=== PATIENT | male | born 1950 | race Hispanic/Latino ===

== ENCOUNTER → 2021-05-28 | Day surgery (SDC) | payer MEDICARE ==
[2021-05-25 13:51] LABS: BASOPHILS # (AUTO) 0.1 (0.0-0.1); BASOPHILS % 1.3 % (0.0-1.0); EOSINOPHILS # (AUTO) 0.3 (0.0-0.4); EOSINOPHILS % 4.3 % (0.0-6.0); HEMATOCRIT 43.1 % (38.2-49.6); HEMOGLOBIN 13.6 g/dL (14.0-18.0); LYMPHOCYTES # (AUTO) 1.4 (1.0-3.2); LYMPHOCYTES % 19.1 % (18.0-39.1); MEAN CORPUSCULAR HGB CONC 31.6 g/dL (31-35); MEAN CORPUSCULAR VOLUME 95.1 fL (81-99); MONOCYTES # (AUTO) 0.6 (0.2-0.8); MONOCYTES % 7.9 % (4.4-11.3); NEUTROPHILS # (AUTO) 4.7 (2.1-6.9); PLATELET COUNT 257 x10e3/uL (140-360); RED BLOOD COUNT 4.53 x10e6/uL (4.3-5.7); RED CELL DISTRIBUTION WIDTH 12.7 % (11.7-14.4)
[2021-05-25 14:07] LABS: ANION GAP 11.7 mmol/L (8-16); CREATININE, SERUM 0.94 mg/dL (0.72-1.25); POTASSIUM 4.7 mmol/L (3.5-5.1)
[~2021-05-28] MED LIST: ATORVASTATIN CA10 MG PO; BELLADONNA/OPIUM 30 MG SUPP RC ONE; CEFTRIAXONE 1 GM VIAL ONE; DEXAMETHASONE SOD PHOS INJ 4 MG/ML SDV ONE; DOXAZOSIN MESYLA2 MG PO; FENTANYL CITRATE/PF 100MCG/2 ML INJ ONE; FINASTERIDE5 MG PO; FLOMAX0.4 MG PO; GENTAMICIN 80MG/NS 100 ML 200 ML IV ONE; HYDROCODONE/APAP 5MG-325MG TAB ONE; IOPAMIDOL 300MG/ML 50ML INFUS..BTL IV ONE; LIDOCAINE HCL 2% LOCAL INJ 5 ML SDV VIAL INJ ONE; LISINOPRIL10 MG PO; ONDANSETRON HCL INJ 2MG/ML 2ML 2 MG/ML VIAL ONE; POVIDONE IODINE 0.05% 0.05 % ML PO ONE; PROPOFOL IV EMULSION 10 MG/ML 20 ML VIAL ONE
[2021-05-28 14:45] VITALS: BP 135/85
== END | disposition home or self-care (01) ==
LOC: OR 09:12
PROVIDERS: ATTEND Urology
DX: N40.1 Benign prostatic hyperplasia with lower urinary tract symptoms (principal); R39.14 Feeling of incomplete bladder emptying; R39.12 Poor urinary stream; R35.1 Nocturia; N32.3 Diverticulum of bladder; N32.89 Other specified disorders of bladder; N32.81 Overactive bladder; E66.9 Obesity, unspecified; I10 Essential (primary) hypertension; E78.00 Pure hypercholesterolemia, unspecified; H91.90 Unspecified hearing loss, unspecified ear; Z01.810 Encounter for preprocedural cardiovascular examination; Z01.812 Encounter for preprocedural laboratory examination; Z20.822 Contact with and (suspected) exposure to COVID-19; Z79.899 Other long term (current) drug therapy; Z68.32 Body mass index [BMI] 32.0-32.9, adult; Z87.891 Personal history of nicotine dependence
CPT/HCPCS: 52005; C9740; 36415; 71046; 74420; 80048; 85025; 93005; C1758; J0696; J1100; J1580; J2001; J2405; J3010; L8699; U0002

== ENCOUNTER 2024-11-27 06:44 | Inpatient (IN) | payer MEDICARE ==
[2024-11-25 12:58] LABS: BASOPHILS % 1.0 % (0.0-1.0); EOSINOPHILS % 2.7 % (0.0-6.0); LYMPHOCYTES % 25.1 % (18.0-39.1); MONOCYTES % 7.1 % (4.4-11.3); NEUTROPHILS % 63.7 % (38.7-80.0); RED CELL DISTRIBUTION WIDTH 12.9 % (11.7-14.4)
[2024-11-25 13:27] LABS: EST GLOMERULAR FILTRATION RATE 83.0 ML/MIN (>=60)
[2024-11-27] VITALS (8 sets, daily range): BP systolic 152–187; BP diastolic 88–95; PULSE 56–75; RESP 16–20; TEMP 97.2–97.6; O2SAT 94–98
[~2024-11-27] VITALS: Ht 172.7 cm; Wt 96.6 kg
[~2024-11-27 06:44] MED LIST changes: +ATORVASTATIN CA40 MG PO; -BELLADONNA/OPIUM 30 MG SUPP RC ONE; -CEFTRIAXONE 1 GM VIAL ONE; -DEXAMETHASONE SOD PHOS INJ 4 MG/ML SDV ONE; -FENTANYL CITRATE/PF 100MCG/2 ML INJ ONE; -GENTAMICIN 80MG/NS 100 ML 200 ML IV ONE; -HYDROCODONE/APAP 5MG-325MG TAB ONE; -IOPAMIDOL 300MG/ML 50ML INFUS..BTL IV ONE; -LIDOCAINE HCL 2% LOCAL INJ 5 ML SDV VIAL INJ ONE; +METOPROLOL TART25 MG PO; -ONDANSETRON HCL INJ 2MG/ML 2ML 2 MG/ML VIAL ONE; -POVIDONE IODINE 0.05% 0.05 % ML PO ONE; -PROPOFOL IV EMULSION 10 MG/ML 20 ML VIAL ONE
[2024-11-27] MEDS: CEFTRIAXONE 1 GM VIAL ONE (08:11)
[2024-11-27] MEDS: SODIUM CHLORIDE 0.9% 1000ML 1,000 ML ONE ×2 (08:11→13:14)
[2024-11-27] MEDS: GENTAMICIN 80MG/NS 100 ML 200 ML IV ONE (08:12)
[2024-11-27] MEDS ORDERED: LIDOCAINE HCL 2% LOCAL INJ 5 ML SDV VIAL INJ ONE (09:27)
[2024-11-27] MEDS ORDERED: PROPOFOL IV EMULSION 10 MG/ML 20 ML VIAL ONE ×2 (09:27→10:01)
[2024-11-27] MEDS ORDERED: FENTANYL CITRATE/PF 100MCG/2 ML INJ ONE ×2 (10:00→10:35)
[2024-11-27] MEDS ORDERED: ONDANSETRON HCL INJ 2MG/ML 2ML 2 MG/ML VIAL ONE (10:06)
[2024-11-27] MEDS ORDERED: ACETAMINOPHEN 1000 MG/100 ML 100 ML IV ONE (10:06)
[2024-11-27] MEDS ORDERED: SEVOFLURANE INHAL SOLN 250 ML PEN BTL ONE (10:06)
[2024-11-27] MEDS ORDERED: DEXAMETHASONE SOD PHOS INJ 4 MG/ML SDV ONE (10:06)
[2024-11-27] MEDS ORDERED: EPHEDRINE SULFATE INJ 50 MG/ML VIAL ONE (10:17)
[2024-11-27] MEDS: SODIUM CHLORIDE 0.9% 1000ML 1,000 ML IV SCH (11:45)
[2024-11-27] MEDS ORDERED: ONDANSETRON HCL INJ 2MG/ML 2ML 2 MG/ML VIAL IV PRN (11:45)
[2024-11-27] MEDS ORDERED: DIPHENHYDRAMINE HCL 25 MG CAP PO PRN (11:45)
[2024-11-27] MEDS: FENTANYL CITRATE/PF 100MCG/2 ML INJ ONE (11:46)
[2024-11-27] MEDS: ACETAMINOPHEN/CODEINE 300MG - 30MG TAB PO PRN (12:15)
[2024-11-27] MEDS: PHENAZOPYRIDINE HCL 100 MG TAB PO PRN (12:15)
[2024-11-27 12:19] LABS: BASOPHILS % 0.3 % (0.0-1.0); EOSINOPHILS % 1.1 % (0.0-6.0); LYMPHOCYTES % 17.3 % (18.0-39.1); MONOCYTES % 2.1 % (4.4-11.3); NEUTROPHILS % 78.9 % (38.7-80.0); RED CELL DISTRIBUTION WIDTH 13.0 % (11.7-14.4)
[2024-11-27 12:51] LABS: EST GLOMERULAR FILTRATION RATE 96.0 ML/MIN (>=60)
[2024-11-27] MEDS ORDERED: ACETAMINOPHEN 1000 MG/100 ML IV PRN (13:03)
[2024-11-27] MEDS: Morphine 2mg Syringe 2 MG/ML SYR IV PRN (14:03)
[2024-11-27] MEDS: SENNA-S TABLET PO SCH (16:07)
[2024-11-28] VITALS (12 sets, daily range): BP systolic 143–175; BP diastolic 80–97; PULSE 55–68; RESP 16–20; TEMP 97–98.3; O2SAT 97–99
[2024-11-28 05:16] LABS: BASOPHILS % 0.2 % (0.0-1.0); EOSINOPHILS % 0.2 % (0.0-6.0); LYMPHOCYTES % 12.1 % (18.0-39.1); MONOCYTES % 5.8 % (4.4-11.3); NEUTROPHILS % 81.1 % (38.7-80.0); RED CELL DISTRIBUTION WIDTH 12.8 % (11.7-14.4)
[2024-11-28 05:45] LABS: EST GLOMERULAR FILTRATION RATE 95.0 ML/MIN (>=60)
[2024-11-28] MEDS: METOPROLOL TARTRATE 25 MG TAB PO SCH (09:00)
[2024-11-28] MEDS: SENNA-S TABLET PO SCH (09:30)
[2024-11-28] MEDS: LISINOPRIL 20 MG TAB PO SCH (09:30)
[2024-11-29 04:40] VITALS: BP 154/80; PULSE 60; RESP 16; TEMP 97.7; O2SAT 99
[2024-11-29 05:15] LABS: BASOPHILS % 0.5 % (0.0-1.0); EOSINOPHILS % 2.1 % (0.0-6.0); LYMPHOCYTES % 21.4 % (18.0-39.1); MONOCYTES % 7.4 % (4.4-11.3); NEUTROPHILS % 68.2 % (38.7-80.0); RED CELL DISTRIBUTION WIDTH 13.0 % (11.7-14.4)
[2024-11-29] MEDS: LISINOPRIL 20 MG TAB PO SCH (05:20)
[2024-11-29 05:49] LABS: EST GLOMERULAR FILTRATION RATE 94.0 ML/MIN (>=60)
[2024-11-29 08:00] VITALS: BP 152/92; PULSE 58; RESP 17; TEMP 98; O2SAT 97
[2024-11-29 08:51] VITALS: BP 152/92; PULSE 58; RESP 17; TEMP 98; O2SAT 97
[2024-11-29 10:23] VITALS: PULSE 63; RESP 20; O2SAT 95
[2024-11-29 12:00] VITALS: BP 146/89; PULSE 60; RESP 17; TEMP 98.7; O2SAT 98
[2024-11-29 16:00] VITALS: BP 174/91; PULSE 61; RESP 17; TEMP 98.4; O2SAT 99
== END 2024-11-29 18:38 | disposition home or self-care (01) | DRG 713 ==
LOC: OR 06:44 → PACU V 12:00 → MED/SURG 12:46
PROVIDERS: ADMIT Internal Medicine; ATTEND Internal Medicine
PROC: BT141ZZ Fluoroscopy of Kidneys, Ureters and Bladder using Low Osmolar Contrast (ICD-10-PCS; 2024-11-27)
PROC: 0V508ZZ Destruction of Prostate, Via Natural or Artificial Opening Endoscopic (ICD-10-PCS; principal; 2024-11-27 10:00)
PROC: 0TCB8ZZ Extirpation of Matter from Bladder, Via Natural or Artificial Opening Endoscopic (ICD-10-PCS; 2024-11-27 10:00)
DX: N40.1 Benign prostatic hyperplasia with lower urinary tract symptoms (principal); N13.8 Other obstructive and reflux uropathy; I10 Essential (primary) hypertension; R31.0 Gross hematuria; E78.5 Hyperlipidemia, unspecified; E66.9 Obesity, unspecified; N21.0 Calculus in bladder; N32.89 Other specified disorders of bladder; Z87.440 Personal history of urinary (tract) infections
CPT/HCPCS: 36415; 71046; 74420; 80048; 83735; 85025; 88300; 93005; 94799; C1758; J0696; J1100; J1580; J2003; J2270; J2405; J7030